=== PATIENT | female | born 2000 | race American Indian/Alaskan Native ===

== ENCOUNTER 2021-05-02 04:36 | Emergency (ER) | payer OTHER ==
--- NOTE | 2021-05-02 05:44 | EDM.PDOCBH ---
<Dameon Oquendo - Last Filed: 05/02/21 07:21> ED HPI GENERAL MEDICAL PROBLEM - General Chief Complaint: Behavioral/Psych Stated Complaint: SUICIDAL Time Seen by Provider: 05/02/21 05:35 - History of Present Illness INITIAL COMMENTS - FREE TEXT/NARRATIVE: 21-year-old individual comes to the emergency room after a suicidal attempt. Patient took all of his Pristiq and Zoloft. I am of ingestion was between midnight and 1 AM. The patient had been on Zoloft started roughly the beginning of this month this was stopped about a week ago and he was started on Pristiq. He took all his remaining Zoloft and all his remaining Pristiq Pristiq was started last week right after he stopped the Zoloft. The patient did this in an attempt to harm himself but he will not go into much more detail. Patient s traight is seen he is stressed out over a lot of events in his childhood but will not elaborate on this. - Related Data Allergies Allergy/AdvReac Type Severity Reaction Status Date / Time No Known Allergies Allergy Verified 05/02/21 04:52 Past Medical History - Past Health History Medical/Surgical History: Denies Medical/Surgical History Psychiatric History: Reports: Depression, Suicide Attempt, Suicidal Ideation Social & Family History - Tobacco Use Tobacco Use Status *Q: Unknown Ever Used Tobacco ED ROS GENERAL - Review of Systems Review Of Systems: See Below Constitutional: Reports: No Symptoms HEENT: Reports: No Symptoms Respiratory: Reports: No Symptoms Cardiovascular: Reports: No Symptoms Endocrine: Reports: No Symptoms GI/Abdominal: Reports: No Symptoms : Reports: No Symptoms Musculoskeletal: Reports: No Symptoms Psychiatric: Reports: Other (See HPI) ED EXAM, BEHAVIORAL HEALTH - Physical Exam Exam: See Below Exam Limited By: No Limitations General Appearance: Alert, No Apparent Distress, Other (Mild sinus tach on the monitor) Eye Exam: Bilateral Eye: Normal Inspection Ears: Normal External Exam, Normal Canal, Hearing Grossly Normal, Normal TMs Nose: Normal Inspection, Normal Mucosa, No Blood Throat/Mouth: Normal Inspection, Normal Lips, Normal Teeth, Normal Gums, Normal Oropharynx, Normal Voice, No Airway Compromise Head: Atraumatic, Normocephalic Neck: Normal Inspection, Supple, Non-Tender, Full Range of Motion. No: Lymphadenopathy (L), Lymphadenopathy (R) Respiratory/Chest: No Respiratory Distress, Lungs Clear, Normal Breath Sounds Cardiovascular: No Edema, No Murmur, Tachycardia GI/Abdominal: Normal Bowel Sounds, Soft, Non-Tender #1 Interpretation EKG Date: 05/02/21 Rhythm: Other (Sinus tachycardia) Rate (Beats/Min): 120 [place]: Normal P-Wave: Present QRS: Other (RSR in V2) ST-T: Normal QT: Normal Comparison: NA - No Prior EKG EKG Interpretation Comments: Mostly normal EKG COURSE, BEHAVIORAL HEALTH COMP - Course Re-Assessment/Re-Exam: Patient's case was discussed with poison control early on the advised to watch for seizures tachycardia agitation prolonged QT. Half-life both medications require observation until least 9 AM this morning. 07:00 the patient did have a seizure a little short time ago she did receive 2 mg of Ativan. At this time is change of shift further care disposition per Dr. Zarate Departure - Departure Disposition: DC/Tfer to Psych Hosp/Unit [facility] Clinical Impression: Depressive disorder Suicide attempt by adequate means Qualifiers: Encounter type: initial encounter Qualified Code(s): X83.8XXA - Intentional self-harm by other specified means, initial encounter Major depression Qualifiers: Active/Remission status: currently active Major depression episode severity: severe Psychotic features: without psychotic features - Discharge Information Instructions: Major Depressive Disorder, Adult Referrals: PCP,None [Primary Care Provider] - Forms: ED Department Discharge Sepsis Event Note (ED) - Evaluation Sepsis Screening Result: No Definite Risk <Bin Zarate - Last Filed: 05/02/21 19:08> COURSE, BEHAVIORAL HEALTH COMP - Course Vital Signs: Last Vital Signs Temp 36.8 C 05/02/21 05:00 Pulse 96 05/02/21 17:36 Resp 22 H 05/02/21 17:36 BP 135/88 05/02/21 17:36 Pulse Ox 99 05/02/21 17:36 Orders, Labs, Meds: Active Orders 24 hr Category Date Time Status CULTURE URINE [MREF] Stat Lab 05/02/21 08:52 Received Laboratory Tests 05/02/21 05/02/21 05/02/21 Range/Units 06:00 06:00 06:00 WBC 8.57 K/mm3 RBC 6.12 M/mm3 Hgb 17.0 gm/dl Hct 52.1 % MCV 85.1 fl MCH 27.8 pg MCHC 32.6 g/dl RDW Std Deviation 42.7 fL Plt Count 263 K/mm3 MPV 10.8 fl Neut % (Auto) 87.9 % Lymph % (Auto) 9.1 % [place] % (Auto) 2.5 % Eos % (Auto) 0.2 Baso % (Auto) 0.2 % Neut # (Auto) 7.53 K/mm3 Lymph # (Auto) 0.78 K/mm3 [place] # (Auto) 0.21 K/mm3 Eos # (Auto) 0.02 K/mm3 Baso # (Auto) 0.02 K/mm3 Sodium 134 mEq/L Potassium 3.8 mEq/L Chloride 100 mEq/L Carbon Dioxide 26 mEq/L Anion Gap 11.8 BUN 7 mg/dL Creatinine 1.0 mg/dL Est Cr Clr Drug Dosing TNP Estimated GFR (MDRD) 93 mL/min BUN/Creatinine Ratio 7.0 Glucose 92 mg/dL Calcium 9.4 mg/dL Total Bilirubin 0.7 mg/dL AST 15 U/L ALT 15 U/L Alkaline Phosphatase 77 U/L Total Protein 8.7 g/dl Albumin 4.8 g/dl Globulin 3.9 gm/dL Albumin/Globulin Ratio 1.2 TSH 3rd Generation 0.564 uIU/mL Urine Color (Yellow) Urine Appearance (Clear) Urine pH (5.0-8.0) Ur Specific [place] (1.005-1.030) Urine Protein (Negative) Urine Glucose (UA) (Negative) Urine Ketones (Negative) Urine Occult Blood (Negative) Urine Nitrite (Negative) Urine Bilirubin (Negative) Urine Urobilinogen (0.2-1.0) Ur Leukocyte Esterase (Negative) Urine RBC (0-5) /hpf Urine WBC (0-5) /hpf Ur Epithelial Cells (0-5) /hpf Urine Bacteria (FEW) /hpf Urine Mucus (FEW) /hpf Urine HCG, Qual (NEGATIVE) Salicylates < 0.2 mg/dL Urine Opiates Screen (VCIPHW=252) Ur Buprenorphine Scrn (CUTOFF=10) Ur Oxycodone Screen (MSE0VG=451) Urine Methadone Screen (JSGINS=616) Ur Propoxyphene Screen (WLXYMD=643) Acetaminophen 0 ug/mL Ur Barbiturates Screen (CCWIVH=357) Ur Tricyclics Screen (VVRUHB=952) Ur Phencyclidine Scrn (CUTOFF=25) Ur Amphetamine Screen (CMGFDQ=098) U Methamphetamines Scrn (VYZQTY=286) U Benzodiazepines Scrn (MHSKCL=036) U Cocaine Metab Screen (NQSNHY=594) U Marijuana (THC) Screen (CUTOFF=50) Ethyl Alcohol 0.00 gm% SARS-CoV-2 RNA (MATT) (NEGATIVE) 05/02/21 05/02/21 05/02/21 Range/Units 06:11 08:52 08:52 WBC K/mm3 RBC M/mm3 Hgb gm/dl Hct % MCV fl MCH pg MCHC g/dl RDW Std Deviation fL Plt Count K/mm3 MPV fl Neut % (Auto) % Lymph % (Auto) % [place] % (Auto) % Eos % (Auto) Baso % (Auto) % Neut # (Auto) K/mm3 Lymph # (Auto) K/mm3 [place] # (Auto) K/mm3 Eos # (Auto) K/mm3 Baso # (Auto) K/mm3 Sodium mEq/L Potassium mEq/L Chloride mEq/L Carbon Dioxide mEq/L Anion Gap BUN mg/dL Creatinine mg/dL Est Cr Clr Drug Dosing Estimated GFR (MDRD) mL/min BUN/Creatinine Ratio Glucose mg/dL Calcium mg/dL Total Bilirubin mg/dL AST U/L ALT U/L Alkaline Phosphatase U/L Total Protein g/dl Albumin g/dl Globulin gm/dL Albumin/Globulin Ratio TSH 3rd Generation uIU/mL Urine Color Light yellow (Yellow) Urine Appearance Clear (Clear) Urine pH 6.5 (5.0-8.0) Ur Specific [place] 1.020 (1.005-1.030) Urine Protein Trace H (Negative) Urine Glucose (UA) Negative (Negative) Urine Ketones Negative (Negative) Urine Occult Blood 2+ H (Negative) Urine Nitrite Negative (Negative) Urine Bilirubin Negative (Negative) Urine Urobilinogen 0.2 (0.2-1.0) Ur Leukocyte Esterase Trace H (Negative) Urine RBC 0-5 (0-5) /hpf Urine WBC 5-10 H (0-5) /hpf Ur Epithelial Cells 0-5 (0-5) /hpf Urine Bacteria Few (FEW) /hpf Urine Mucus Not seen (FEW) /hpf Urine HCG, Qual (NEGATIVE) Salicylates mg/dL Urine Opiates Screen Negative (UPSOVW=863) Ur Buprenorphine Scrn Negative (CUTOFF=10) Ur Oxycodone Screen Negative (GRS9YI=865) Urine Methadone Screen Negative (BGEYUJ=203) Ur Propoxyphene Screen Negative (RZXEUA=649) Acetaminophen ug/mL Ur Barbiturates Screen Negative (TLFABG=753) Ur Tricyclics Screen Negative (HFBWIG=894) Ur Phencyclidine Scrn Negative (CUTOFF=25) Ur Amphetamine Screen Negative (LUDDAK=143) U Methamphetamines Scrn Negative (AKXHOY=258) U Benzodiazepines Scrn Negative (ZMXSKD=718) U Cocaine Metab Screen Negative (IZAZGV=060) U Marijuana (THC) Screen Negative (CUTOFF=50) Ethyl Alcohol gm% SARS-CoV-2 RNA (MATT) Negative (NEGATIVE) 05/02/21 Range/Units 08:52 WBC K/mm3 RBC M/mm3 Hgb gm/dl Hct % MCV fl MCH pg MCHC g/dl RDW Std Deviation fL Plt Count K/mm3 MPV fl Neut % (Auto) % Lymph % (Auto) % [place] % (Auto) % Eos % (Auto) Baso % (Auto) % Neut # (Auto) K/mm3 Lymph # (Auto) K/mm3 [place] # (Auto) K/mm3 Eos # (Auto) K/mm3 Baso # (Auto) K/mm3 Sodium mEq/L Potassium mEq/L Chloride mEq/L Carbon Dioxide mEq/L Anion Gap BUN mg/dL Creatinine mg/dL Est Cr Clr Drug Dosing Estimated GFR (MDRD) mL/min BUN/Creatinine Ratio Glucose mg/dL Calcium mg/dL Total Bilirubin mg/dL AST U/L ALT U/L Alkaline Phosphatase U/L Total Protein g/dl Albumin g/dl Globulin gm/dL Albumin/Globulin Ratio TSH 3rd Generation uIU/mL Urine Color (Yellow) Urine Appearance (Clear) Urine pH (5.0-8.0) Ur Specific [place] (1.005-1.030) Urine Protein (Negative) Urine Glucose (UA) (Negative) Urine Ketones (Negative) Urine Occult Blood (Negative) Urine Nitrite (Negative) Urine Bilirubin (Negative) Urine Urobilinogen (0.2-1.0) Ur Leukocyte Esterase (Negative) Urine RBC (0-5) /hpf Urine WBC (0-5) /hpf Ur Epithelial Cells (0-5) /hpf Urine Bacteria (FEW) /hpf Urine Mucus (FEW) /hpf Urine HCG, Qual Negative (NEGATIVE) Salicylates mg/dL Urine Opiates Screen (JQHLDT=476) Ur Buprenorphine Scrn (CUTOFF=10) Ur Oxycodone Screen (EKH2GB=743) Urine Methadone Screen (TLJCJD=439) Ur Propoxyphene Screen (MWMYSQ=815) Acetaminophen ug/mL Ur Barbiturates Screen (GOVOMY=897) Ur Tricyclics Screen (TLKVBE=869) Ur Phencyclidine Scrn (CUTOFF=25) Ur Amphetamine Screen (MLNIIT=064) U Methamphetamines Scrn (NSXMDM=879) U Benzodiazepines Scrn (YCEDVG=214) U Cocaine Metab Screen (AOHNID=871) U Marijuana (THC) Screen (CUTOFF=50) Ethyl Alcohol gm% SARS-CoV-2 RNA (MATT) (NEGATIVE) Medications Discontinued Medications Generic Name Dose Route Start Last Admin Trade Name Freq PRN Reason Stop Dose Admin Lorazepam Confirm 05/02/21 06:18 05/02/21 08:51 Lorazepam 2 Mg/Ml Sdv Administered 05/02/21 06:19 Not Given Dose 2 mg .ROUTE .STK-MED ONE Lorazepam Confirm 05/02/21 06:29 05/02/21 08:51 Lorazepam 2 Mg/Ml Sdv Administered 05/02/21 06:30 Not Given Dose 2 mg .ROUTE .STK-MED ONE Lorazepam 2 mg 05/02/21 06:35 05/02/21 06:30 Lorazepam 2 Mg/Ml Sdv IVPUSH 05/02/21 06:36 2 mg ONETIME ONE Administration Re-Assessment/Re-Exam Date: 05/02/21 (Patient is alert and speaking with the nursing staff. She was not aware that she had suffered a seizure at 0633 hrs. this morning. She received 2 mg of Ativan x3 aliquots which has created confusion. Poison control suggest since she had a seizure from the overdose she should be monitored on the medical floor or ICU for 24 hours from the time of ingestion or 12 hours from the time of seizure.) Re-Assessment/Re-Exam Time: 11:36 (I was able to speak through the 1 call service at [facility] in [place] with Dr. Ramos and she is excepted care of this patient. There will be a delay in transfer to that facility due to seizure that occurred at 0630 hrs. this morning. Poison control recommends monitoring for further 12 hours before transferring to a nonmedical unit. We will therefore plan on transferring her by ground ambulance with a deputy on board at 1830 hrs. today.) Medical Clearance: 05/02/21 16:04 blood pressure is 117/79. O2 sats are 98% on room air. She remains mildly tachycardic at 112 to 117/min. Plan discharge at 1820 hrs. today to travel to [facility] in [place] per ground ambulance with kajal`s deputy on board. 05/02/21 18:05 vitals have remained stable. BP is 136/89. Heart rate remains 110 and sinus tachycardia. She has eaten supper. Departure - Departure Time of Disposition: 18:20 Condition: Fair - Discharge Information *PRESCRIPTION DRUG MONITORING PROGRAM REVIEWED*: Not Applicable *COPY OF PRESCRIPTION DRUG MONITORING REPORT IN PATIENT CASH: Not Applicable Sepsis Event Note (ED) - Focused Exam Vital Signs: Vital Signs Pulse Resp BP Pulse Ox 05/02/21 17:36 96 22 H 135/88 99
[2021-05-02] MEDS ORDERED: LORazepam 2 MG/ML SDV ONE ×2 (06:18→06:29)
[2021-05-02] MEDS ORDERED: LORazepam 2 MG/ML SDV IVPUSH ONE (06:35)
[2021-05-02 06:43] LABS: ACETAMINOPHEN 0 ug/mL
== END 2021-05-02 18:41 ==
LOC: EDSEX 04:36 → JD.ED 04:36
DX: T43.222A Poisoning by selective serotonin reuptake inhibitors, intentional self-harm, initial encounter (principal); F32.9 Major depressive disorder, single episode, unspecified; Z20.822 Contact with and (suspected) exposure to COVID-19
CPT/HCPCS: 36415; 80053; 80143; 80179; 80306; 80307; 81001; 81025; 84443; 85025; 87086; 87635; 93005; 96374; 99285; J2060; 93010; 99284; U0002

== ENCOUNTER 2022-10-10 19:34 | Emergency (ER) | payer OTHER ==
[2022-10-10] MEDS ORDERED: Ondansetron 4 MG Tab.DIS PO ONE (21:40)
== END 2022-10-10 21:51 | disposition home or self-care (01) ==
LOC: JD.ED 19:34
DX: R42 Dizziness and giddiness (principal); R11.2 Nausea with vomiting, unspecified; V53.5XXA Driver of pick-up truck or van injured in collision with car, pick-up truck or van in traffic accident, initial encounter; Y92.410 Unspecified street and highway as the place of occurrence of the external cause
CPT/HCPCS: 36415; 71045; 71045-26; 85025; 99283; 99284

== ENCOUNTER 2023-08-16 14:07 | Emergency (ER) | payer OTHER, BC ==
[2023-08-16 14:53] LABS: BASOPHILS PERCENT AUTO 0.3 % (0.0-1.0); EOSINOPHILS ABSOLUTE AUTO 0.1 K/mm3 (0.0-0.4); EOSINOPHILS PERCENT AUTO 0.7 % (0.0-6.0); HEMATOCRIT 46.4 % (37.0-47.0); HEMOGLOBIN 15.9 gm/dl (12.0-16.0); IMMATURE GRAN ABSOLUTE AUTO 0.03 K/mm3 (0.00-0.05); IMMATURE GRAN PERCENT AUTO 0.3 % (0.0-0.4); LYMPHOCYTES ABSOLUTE AUTO 2.1 K/mm3 (1.0-4.8); LYMPHOCYTES PERCENT AUTO 18.5 % (24.0-44.0); MEAN CORPUSCULAR HEMOGLOBIN 30.2 pg (28.0-32.0); MEAN CORPUSCULAR HGB CONC 34.3 g/dl (32.0-36.0); MEAN CORPUSCULAR VOLUME 88.2 fl (83.0-99.0); MEAN PLATELET VOLUME 10.1 fl (9.4-12.3); MONOCYTES ABSOLUTE AUTO 0.5 K/mm3 (0.0-0.8); MONOCYTES PERCENT AUTO 4.1 % (0.0-8.0); NEUTROPHILS ABSOLUTE AUTO 8.5 K/mm3 (1.8-7.7); NEUTROPHILS PERCENT AUTO 76.1 % (41.0-71.0); PLATELET COUNT,PLT 257 K/mm3 (150-400); RED BLOOD CELL COUNT 5.26 M/mm3 (4.10-5.30); WHITE BLOOD CELL COUNT,WBC 11.14 K/mm3 (3.9-11.3)
[2023-08-16 15:24] LABS: A/G RATIO 1.3 (1-2); ALBUMIN 4.4 g/dl (3.4-5.0); ANION GAP 13.4 (5-15); BILIRUBIN TOTAL 0.6 mg/dL (0.2-1.0); BUN/CREATININE RATIO 13.3 (14-18); CALCIUM 9.4 mg/dL (8.5-10.1); CREATININE 0.9 mg/dL (0.55-1.02); EST CRCL DRUG DOSING (CG) 83.23 mL/min; POTASSIUM,K 3.4 mEq/L (3.5-5.1); PROTEIN TOTAL,TP 7.8 g/dl (6.4-8.2)
[2023-08-16 16:04] LABS: TSH 1.145 uIU/mL (0.358-3.74)
== END 2023-08-16 17:12 | disposition home or self-care (01) ==
LOC: JD.ED 14:07
DX: R00.2 Palpitations (principal); Z79.899 Other long term (current) drug therapy
CPT/HCPCS: 36415; 71046; 71046-26; 80053; 84443; 84484; 85025; 85379; 93005; 93246; 99285